=== PATIENT | male | born 1990 ===

== ENCOUNTER 2021-06-29 16:42 | Emergency (ER) | payer SELFPAY ==
[~2021-06-29] VITALS: Ht 193 cm; Wt 97.7 kg
[2021-06-29 16:50] VITALS: TEMP 98.3
[2021-06-29] MEDS ORDERED: FLEXERIL 1010 MG/TAB PO (20:28)
[2021-06-29 20:42] VITALS: BP 135/79; PULSE 81
== END 2021-06-29 20:42 | disposition home or self-care (01) ==
LOC: COL.ER 16:42
DX: M25.551 Pain in right hip (principal); M25.561 Pain in right knee; M54.50 Low back pain, unspecified; F17.210 Nicotine dependence, cigarettes, uncomplicated; V49.50XA Passenger injured in collision with unspecified motor vehicles in traffic accident, initial encounter

== ENCOUNTER 2022-02-09 20:47 | Emergency (ER) | payer OTHER ==
[~2022-02-09] VITALS: Ht 193 cm; Wt 102.3 kg
[~2022-02-09 20:47] MED LIST: FLEXERIL 1010 MG/TAB PO
[2022-02-09 20:53] VITALS: TEMP 98.2
[2022-02-09] MEDS ORDERED: ROXICODONE 55 MG/TAB PO (21:51)
[2022-02-09 22:09] VITALS: BP 109/78; PULSE 62
== END 2022-02-09 22:09 | disposition home or self-care (01) ==
LOC: COL.ER 20:47
DX: S00.83XA Contusion of other part of head, initial encounter (principal); S00.412A Abrasion of left ear, initial encounter; Z87.891 Personal history of nicotine dependence; Y04.8XXA Assault by other bodily force, initial encounter